=== PATIENT | female | born 1955 | race Caucasian/White ===

== ENCOUNTER → 2021-08-01 08:59 | Outpatient (BNVA) | payer MEDICARE, SELFPAY | PROVIDERS: PCP Nurse Practitioner Family; Visit Provider Internal Medicine Rheumatology | DX: M75.52 Bursitis of left shoulder (principal); M47.816 Spondylosis without myelopathy or radiculopathy, lumbar region; M19.041 Primary osteoarthritis, right hand; M19.042 Primary osteoarthritis, left hand; M54.30 Sciatica, unspecified side; Z79.52 Long term (current) use of systemic steroids; E11.9 Type 2 diabetes mellitus without complications; Z79.84 Long term (current) use of oral hypoglycemic drugs; Z87.891 Personal history of nicotine dependence | CPT/HCPCS: 20610; 99204 ==

== ENCOUNTER → 2023-06-28 10:13 | Outpatient (BNVA) | payer MEDICARE, OTHER, SELFPAY | PROVIDERS: PCP Nurse Practitioner Family; Visit Provider Emergency Medicine | DX: R39.9 Unspecified symptoms and signs involving the genitourinary system (principal); N39.0 Urinary tract infection, site not specified | CPT/HCPCS: 81000; 87077; 87086; 87184 ==

== ENCOUNTER 2024-10-03 20:26 | Inpatient (IN) | payer MEDICARE, SELFPAY ==
[2024-10-03] VITALS (7 sets, daily range): BP systolic 100–124; BP diastolic 71–86; PULSE 71–90; RESP 11–18; TEMP 36.6; O2SAT 91–97; BMI 27.3
--- NOTE | 2024-10-03 20:27 | XRR_ITS ---
PROCEDURE INFORMATION: Exam: XR Chest Exam date and time: 10/03/2024 8:42 PM Age: 68 years old Clinical indication: Chest pressure; Patient HX: PT. Brought by [facility] with complaint of chest pain. PT. Locked herself out of her house and states that she started having chest pain while trying to lift the window. PT. States that she has history of angina. ; Additional info: Cp TECHNIQUE: Imaging protocol: Radiologic exam of the chest. Views: 1 view. COMPARISON: No relevant prior studies available. FINDINGS: Lungs: Unremarkable. No consolidation. Pleural spaces: Unremarkable. No pleural effusion. No pneumothorax. Heart/Mediastinum: Unremarkable. No cardiomegaly. Bones/joints: Unremarkable. XR/XR chest 1V portable [id number] IMPRESSION: No acute findings.
--- NOTE | 2024-10-03 20:30 | ECG_ITS ---
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1955 Requested By: John Sharma Order Number: [id number] Reading MD: JELENA DOSS Measurements Intervals [place] Rate: 71 P: 42 NV: 164 QRS: -1 QRSD: 89 T: 72 QT: 380 QTc: 414 Interpretive Statements SINUS RHYTHM WITH SINUS ARRHYTHMIA LOW QRS VOLTAGE IN PRECORDIAL LEADS [QRS DEFLECTION < 1.0 mV IN CHEST LEADS] POSSIBLE RIGHT VENTRICULAR CONDUCTION DELAY [RSR (QR) IN V1/V2] PROBABLE ANTERIOR MYOCARDIAL INFARCTION , OF INDETERMINATE AGE [35 ms Q WAVE IN V3/V4] No previous ECG available for comparison Electronically Signed On 10-05-2024 23:14:21 CAFETERIA TEAM LEADER by JELENA DOSS [email or web address]
--- NOTE | 2024-10-03 20:36 | W.ED.CHESTPA ---
HPI - Chest Pain General: Chief Complaint: Chest Pain Stated Complaint: CHEST PAIN Time Seen by Provider: 10/03/24 20:30 Source: patient Mode of arrival: ambulatory Limitations: no limitations History of Present Illness: 68-year-old female states she started having chest pain today 7. States been a pressure pain in her chest that radiates to her left jaw states pain is currently a 6 out of 10 denies any shortness of breath she denies any fevers denies any worsening improving factors. Associated symptoms: Deny abdominal pain, dyspnea, fever(s), nausea or vomiting Related Data Home Medications Medication Instructions Recorded Confirmed acetaminophen 500 mg capsule 500 mg PO Q6H PRN 07/27/21 07/25/24 alprazolam 1 mg tablet (Xanax) 1 mg PO TID PRN 07/27/21 07/25/24 cyclobenzaprine 10 mg tablet 10 mg PO TID 07/27/21 07/25/24 dapagliflozin propanediol 10 mg 10 mg PO DAILY 07/27/21 07/25/24 tablet (Farxiga) docusate sodium 100 mg capsule 100 mg PO DAILY 07/27/21 07/25/24 fluticasone propionate 50 1 spray intranasal DAILY 07/27/21 07/25/24 mcg/actuation nasal spray,suspension gabapentin 600 mg tablet 600 mg PO DAILY 07/27/21 07/25/24 isosorbide mononitrate 30 mg 30 mg PO DAILY 07/27/21 07/25/24 tablet,extended release 24 hr lisinopril 30 mg tablet 30 mg PO DAILY 07/27/21 07/25/24 loratadine 10 mg capsule 10 mg PO DAILY 07/27/21 07/25/24 melatonin 1 mg tablet 1 mg PO DAILY 07/27/21 07/25/24 meloxicam 15 mg tablet 15 mg PO DAILY 07/27/21 07/25/24 pantoprazole 20 mg tablet,delayed 20 mg PO DAILY 07/27/21 07/25/24 release (Protonix) cholecalciferol (vitamin D3) 50 50 mcg PO DAILY 08/01/21 07/25/24 mcg (2,000 unit) capsule Previous Rx's Medication Instructions Recorded ciprofloxacin HCl 500 mg tablet 500 mg PO BID 5 days #10 tabs 06/28/23 Allergies Allergy/AdvReac Type Severity Reaction Status Date / Time lactose Allergy Intermediate Unknown Verified 07/25/24 16:09 atorvastatin [From Lipitor] Allergy sick all Verified 07/25/24 16:09 over doxepin [From Silenor] Allergy Unknown Verified 07/25/24 16:09 fenofibrate Allergy sick all Verified 07/25/24 16:09 over caffeine AdvReac very Verified 07/25/24 16:09 sensitive Review of Systems Const: Denies: fever(s), chills, body aches or change in appetite ENMT: Denies: throat pain or dental pain Card: Reports: chest pain Resp: Denies: dyspnea GI: Denies: abdominal pain, nausea, vomiting or diarrhea : Denies: dysuria Musc: Denies: neck pain or back pain Skin/Breast: Denies: rash Neuro: Denies: headache(s) PFSH ED PFSH: Medical History Angina at rest Degenerative joint disease (DJD) of lumbar spine Diabetes Diabetes type 2, controlled Essential hypertension History of hypercholesterolemia Joint pain Osteoarthritis of hands, bilateral Subacromial bursitis of left shoulder joint Surgical History History of appendectomy History of cholecystectomy History of tonsillectomy Family History Other CAD (coronary artery disease) Cancer Diabetes Family history of premature coronary artery disease Hyperlipidemia Hypertension Lung disease Stroke Denies family history of Rheumatoid arthritis Lupus Chronic kidney disease (CKD) Social History Smoking and tobacco/nicotine status: never used tobacco/nicotine Alcohol intake: current Alcohol intake frequency: holidays/special occasions only Physical Exam Const: COMMON NORMALS: patient oriented x3 HENMT: COMMON NORMALS: normocephalic and atraumatic HEAD & SCALP: normocephalic and atraumatic Neck/C-Spine: COMMON NORMALS: full ROM and supple Chest: COMMONS NORMALS: normal inspection of the chest and normal palpation of entire chest wall Resp: COMMON NORMALS: normal respiratory effort, No retractions, No use of accessory muscles and clear to auscultation bilaterally AUSCULTATION: clear to auscultation bilaterally Cardio: COMMON NORMALS: regular rate, regular rhythm and No murmurs present (Cardio) RATE: regular rate RHYTHM: regular rhythm GI: COMMON NORMALS: Normal to inspection, nondistended, normoactive bowel sounds present, Soft to palpation, non-tender and no masses PALPATION: Yes Soft to palpation Extremity: COMMON NORMALS: normal to inspection and full ROM Neuro: COMMON NORMALS: patient oriented x3, moves all extremities and no focal motor deficits Psych: COMMON NORMALS: mental status grossly normal, Normal thought process present and cooperative THOUGHT PROCESS: Normal thought process present Skin: COMMON NORMALS: no rashes or lesions noted and no wounds GENERAL SKIN EXAM: no rashes or lesions noted Course Vital Signs: Vital signs: Vital Signs Temperature 97.8 F 10/03/24 20:30 Pulse Rate 71 10/03/24 20:56 Respiratory Rate 18 10/03/24 20:57 Blood Pressure 124/86 10/03/24 20:56 Pulse Oximetry 95 10/03/24 20:57 Oxygen Delivery Me thod Room Air 10/03/24 20:56 MDM - Chest Pain Medical Decision Making Patient presents here with chest pain her troponin here is elevated pains improved here EKG shows no signs of ST elevation I spoke to cocoa milling machine operator along with hospitalist and will admit at this time. Medical Records I reviewed the patient's medical records. Lab Data I reviewed the patient's lab results. 10/03/24 20:34 10/03/24 20:34 Laboratory Results WBC 8.17 10^3/uL (3.29-11.43) 10/03/24 20:34 RBC 4.72 10^6/uL (3.85-5.65) 10/03/24 20:34 Hgb 15.80 g/dL (11.27-16.99) 10/03/24 20:34 Hct 47.6 % (36-47) H 10/03/24 20:34 MCV 100.8 fl (85-98) H 10/03/24 20:34 MCH 33.5 pg (27-33) H 10/03/24 20:34 MCHC 33.2 g/dL (30-55) 10/03/24 20:34 RDW 12.6 % (12.1-15.1) 10/03/24 20:34 Plt Count 297 10^3/cmm (157-399) 10/03/24 20:34 MPV 9.7 fL (7.4-10.4) 10/03/24 20:34 Neut % (Auto) 49.1 % 10/03/24 20:34 Lymph % (Auto) 39.3 % 10/03/24 20:34 [place] % (Auto) 9.1 % 10/03/24 20:34 Eos % (Auto) 1.8 % 10/03/24 20:34 Baso % (Auto) 0.5 % 10/03/24 20:34 Neut # (Auto) 4.01 10^3/uL (1.8-7.7) 10/03/24 20:34 Lymph # (Auto) 3.2 10^3/uL (0.8-4.8) 10/03/24 20:34 [place] # (Auto) 0.7 10^3/uL (0.2-0.9) 10/03/24 20:34 Eos # (Auto) 0.2 10^3/uL (0.0-0.8) 10/03/24 20:34 Baso # (Auto) 0.0 10^3/uL (0.0-0.1) 10/03/24 20:34 Nucleated RBC % (auto) 0 % 10/03/24 20:34 Nucleated RBCs # 0.0 /100WBC 10/03/24 20:34 Sodium 141 mmol/L (136-145) 10/03/24 20:34 Potassium 3.5 mmol/L (3.5-5.1) 10/03/24 20:34 Chloride 101 mmol/L (98-107) 10/03/24 20:34 Carbon Dioxide 28 mmol/L (22-29) 10/03/24 20:34 Anion Gap 15.5 (5-19) 10/03/24 20:34 BUN 12 mg/dL (8-23) 10/03/24 20:34 Creatinine 0.9 mg/dL (0.5-0.9) 10/03/24 20:34 GFR Calculation 62.3 mL/min (90-130) L 10/03/24 20:34 Glucose 148 mg/dL (65-115) H 10/03/24 20:34 Calculated Osmolality 295 mOsm/kg (285-295) 10/03/24 20:34 Calcium 10.8 mg/dL (8.5-10.5) H 10/03/24 20:34 Total Bilirubin 0.3 mg/dL (0.15-1.2) 10/03/24 20:34 AST 20 U/L (0-32) 10/03/24 20:34 ALT 14 U/L (0-33) 10/03/24 20:34 Alkaline Phosphatase 78 U/L (35-105) 10/03/24 20:34 Troponin T Baseline 169 ng/L (0-10) H* 10/03/24 20:34 Total Protein 7.5 g/dL (6.6-8.7) 10/03/24 20:34 Albumin 4.8 g/dL (3.5-5.2) 10/03/24 20:34 Globulin 2.7 g/dL (1.3-4.6) 10/03/24 20:34 All radiology interpretation(s) finalized by discharge EKG Data EKG 1: I personally reviewed and interpreted this EKG as follows: EKG interpretation date: 10/03/24 EKG interpretation time: 20:30 Interpretation: nsr hr [address] elevation qrs 89 qtc 402 Discharge Plan Discharge Patient Disposition: Admitted As Inpatient Clinical Impression: Non-ST elevation [place] (NSTEMI) Condition: Stable Prescriptions: No Action cholecalciferol (vitamin D3) 50 mcg (2,000 unit) capsule 50 mcg PO DAILY docusate sodium 100 mg capsule 100 mg PO DAILY loratadine 10 mg capsule 10 mg PO DAILY acetaminophen 500 mg capsule 500 mg PO Q6H PRN melatonin 1 mg tablet 1 mg PO DAILY cyclobenzaprine 10 mg tablet 10 mg PO TID fluticasone propionate 50 mcg/actuation spray,suspension 1 spray intranasal DAILY Rx Instructions: administer into each nostril lisinopril 30 mg tablet 30 mg PO DAILY Farxiga 10 mg tablet 10 mg PO DAILY gabapentin 600 mg tablet 600 mg PO DAILY isosorbide mononitrate 30 mg tablet extended release 24 hr 30 mg PO DAILY meloxicam 15 mg tablet 15 mg PO DAILY alprazolam [Xanax] 1 mg tablet 1 mg PO TID PRN pantoprazole [Protonix] 20 mg tablet,delayed release (DR/EC) 20 mg PO DAILY ciprofloxacin HCl 500 mg tablet 500 mg PO BID 5 Days Qty: 10 0RF Referrals: Patric Saravia [Primary Care Provider] - Coding Level of Care Code ED Burnisher And Bumper for [facility] Esteban
[2024-10-03 20:42] LABS: Basophils % 0.5 %; Eosinophils # 0.2 10^3/uL (0.0-0.8); Eosinophils % 1.8 %; Hematocrit 47.6 % (36-47); Lymphocytes # 3.2 10^3/uL (0.8-4.8); Lymphocytes % 39.3 %; Mean Corpuscular HGB Conc 33.2 g/dL (30-55); Mean Corpuscular Hemoglobin 33.5 pg (27-33); Mean Corpuscular Volume 100.8 fl (85-98); Mean Platelet Volume 9.7 fL (7.4-10.4); Monocytes # 0.7 10^3/uL (0.2-0.9); Monocytes % 9.1 %; Neutrophils # 4.01 10^3/uL (1.8-7.7); Neutrophils % 49.1 %; Nucleated Red Blood Cells % 0 %; Platelet Count 297 10^3/cmm (157-399); Red Blood Count 4.72 10^6/uL (3.85-5.65); Red Cell Distribution Width 12.6 % (12.1-15.1); White Blood Count 8.17 10^3/uL (3.29-11.43)
[2024-10-03] MEDS: HYDROmorphone 1 mg/mL INJ 1 mL IVP (20:57)
[2024-10-03 20:58] LABS: Alanine Aminotransferase 14 U/L (0-33); Albumin Level 4.8 g/dL (3.5-5.2); Alkaline Phosphatase 78 U/L (35-105); Aspartate Amino Transferase 20 U/L (0-32); Blood Urea Nitrogen 12 mg/dL (8-23); Calcium 10.8 mg/dL (8.5-10.5); Carbon Dioxide 28 mmol/L (22-29); Chloride 101 mmol/L (98-107); Creatinine Clr Calc Pharmacy 56.0822; Globulin 2.7 g/dL (1.3-4.6); Glomerular Filtration Rate 62.3 mL/min (90-130); Glucose 148 mg/dL (65-115); Osmolality Calculated 295 mOsm/kg (285-295); Sodium 141 mmol/L (136-145); Total Bilirubin 0.3 mg/dL (0.15-1.2); Total Protein 7.5 g/dL (6.6-8.7)
[2024-10-03 20:59] LABS: Anion Gap 15.5 (5-19); Potassium 3.5 mmol/L (3.5-5.1)
[2024-10-03 21:16] LABS: Troponin(5th) Baseline 169 ng/L (0-10)
--- NOTE | 2024-10-03 21:27 | P.HP_ITS ---
Providers/Chief Complaint 2 Primary Care Provider: Patric Saravia Chief Complaint: CHEST PAIN History of Present Illness Caridad Cheema is a 68 year old female with past medical history significant for type 2 diabetes mellitus, hypertension, hyperlipidemia, and coronary artery disease who presents emergency department with left-sided chest pressure. Patient reports onset around 6 PM this evening. She states she got locked out of her house and with a friend was trying to get through some windows to get back in. She ultimately was unable to and called 911. Please officer was able to open a window and enter the home. During this time she developed a left- sided chest pressure. She initially attributed it to the situation. States after getting inside and getting home down the pressure never left. She rates the pressure about a 7 out of 10 at that time. Reported radiation up to the left jaw. Denies other alleviating or aggravating factors. Due to symptoms and lack of easement, EMS was called. In the emergency department, initial troponin was 169 ng/L. Cardiology consulted recommending NSTEMI treatment. Patient does endorse a history of coronary artery disease. She reports 2 prior cardiac catheterizations via [facility]yman approach. States last 1 was probably around 10 years ago. She denies prior bypass or stents. She reports coronary disease but not severe enough to previously require interventions, only medical management at that time. She reports extensive family history of coronary artery disease with CAD in her mother requiring CABG and all of her brothers requiring interventions as well. Review of Systems 2 Narrative: A complete review of systems was obtained and is negative except as stated in HPI. Medications/Allergies Home Medications Medication Instructions Recorded Confirmed Last Taken Type acetaminophen 500 mg capsule 500 mg PO Q6H PRN Fever Or Pain 07/27/21 10/03/24 Unknown History alprazolam 1 mg tablet (Xanax) 0.5 mg PO BEDTIME PRN Anxiety 07/27/21 10/03/24 Unknown History dapagliflozin propanediol 10 mg 10 mg PO DAILY 07/27/21 10/03/24 Unknown History tablet (Farxiga) gabapentin 600 mg tablet 600 mg PO BID 07/27/21 10/03/24 Unknown History isosorbide mononitrate 30 mg 30 mg PO DAILY 07/27/21 10/03/24 Unknown History tablet,extended release 24 hr lisinopril 30 mg tablet 20 mg PO DAILY 07/27/21 10/03/24 Unknown History pantoprazole 20 mg tablet,delayed 20 mg PO DAILY 07/27/21 10/03/24 Unknown History release (Protonix) cholecalciferol (vitamin D3) 50 5,000 unit PO DAILY 08/01/21 10/03/24 Unknown History mcg (2,000 unit) capsule [place] Mushroom 1,000 mg PO DAILY 10/03/24 10/03/24 Unknown History celecoxib 200 mg capsule 200 mg PO DAILY 10/03/24 10/03/24 Unknown History diclofenac sodium 1 % topical gel 2 g topical BID 10/03/24 10/03/24 Unknown History elderberry fruit 200 mg capsule 2,000 mg PO DAILY 10/03/24 10/03/24 Unknown History ezetimibe 10 mg tablet 10 mg PO DAILY 10/03/24 10/03/24 Unknown History sabina (Zingiber officinalis) 500 500 mg PO DAILY 10/03/24 10/03/24 Unknown History mg capsule semaglutide 1 mg/dose (4 mg/3 mL) 1 mg SUBCUT DIRECTED 10/03/24 10/03/24 09/27/24 History subcutaneous pen injector (Ozempic) solifenacin 5 mg tablet 5 mg PO DAILY 10/03/24 10/03/24 Unknown History Allergies Allergy/AdvReac Type Severity Reaction Status Date / Time lactose Allergy Intermediate Unknown Verified 07/25/24 16:09 atorvastatin [From Lipitor] Allergy sick all Verified 07/25/24 16:09 over doxepin [From Silenor] Allergy Unknown Verified 07/25/24 16:09 fenofibrate Allergy sick all Verified 07/25/24 16:09 over caffeine AdvReac very Verified 07/25/24 16:09 sensitive PFSH Acute 2 PFSH: Medical History (Updated 10/03/24 @ 23:13 by Onesimo Balderas MD) Anxiety Degenerative joint disease (DJD) of lumbar spine Osteoarthritis of hands, bilateral Diabetes type 2, controlled Subacromial bursitis of left shoulder joint Joint pain Diabetes Angina at rest History of hypercholesterolemia Essential hypertension Surgical History History of tonsillectomy History of cholecystectomy History of appendectomy Family History Other CAD (coronary artery disease) Cancer Diabetes Family history of premature coronary artery disease Hyperlipidemia Hypertension Lung disease Stroke Denies family history of Rheumatoid arthritis Lupus Chronic kidney disease (CKD) Social History Smoking and tobacco/nicotine status: never used tobacco/nicotine Alcohol intake: current Alcohol intake frequency: holidays/special occasions only Vitals/I&O/Wt Last Vital Signs Temp 97.8 F 10/03/24 20:30 Pulse 71 10/03/24 20:56 Resp 18 10/03/24 20:57 BP 124/86 10/03/24 20:56 Pulse Ox 95 10/03/24 20:57 O2 Del Method Room Air 10/03/24 20:56 10/03/24 10/03/24 10/03/24 06:59 14:59 22:59 Intake Total 0 / 0 Balance 0 / 0 Weight last 48 hrs Weight 69.853 kg Physical Exam 2 Narrative: General: Patient is awake and alert. Pleasant. Conversational. Head: Normocephalic. Atraumatic. EOM intact. Neck: No JVD. Cardiovascular: RRR. No gallops. No murmurs. No peripheral edema. Lungs: Clear to auscultation, no use of accessory muscles, no crackles or wheezes. Skin: No jaundice. No rashes. Abdomen: Normal bowel sounds, abdomen soft and nontender. Genito Urinary: Genital exam not performed since complaints not related. Rectal: Rectal exam not performed since no symptoms indicated blood loss. Extremities: No cyanosis or clubbing. Musculoskeletal: No swollen or erythematous joints. Neurological: Moves all 4 extremities. No myoclonus. Data 10/03/24 20:34 10/03/24 20:34 A&P Assessment and plan (1) Non-ST elevation [place] (NSTEMI): Presentation consistent with NSTEMI Patient reports history nonobstructive coronary artery disease without recent ischemic evaluation She has multiple risk factors for coronary disease Trend troponins Continuous telemetry monitoring Complete echocardiogram Nitroglycerin as needed, hydromorphone for breakthrough pain Start therapeutic Lovenox for anticoagulation Loaded with aspirin, continue 81 mg daily Will load with Plavix followed by 75 mg daily She has history to statin allergy, could consider low intensity statin Continue Zetia Check lipids and A1c for restratification Consider beta-kane, current hemodynamics will not support systolic blood pressure of 100 mmHg Cardiology consultation for recommendations regarding ischemic workup Make n.p.o. after midnight (2) Diabetes type 2, controlled: Check A1c Hold Farxiga and Ozempic as nonformulary Sliding-scale insulin correction, low-dose Avoid hypoglycemia (3) Anxiety: Continue home Xanax as needed (4) Osteoarthritis of hands, bilateral: Hold home NSAID due to association with worsening outcomes and coronary disease Tylenol as needed (5) Hypertension: Continue home lisinopril (6) Hyperlipidemia: Continue home ezetimibe Plan DVT prophylaxis: Lovenox CODE STATUS: Full code Attestations 2 Medical Necessity Statement*: Patient presents with left-sided chest pressure with radiation to jaw, found to have NSTEMI in the setting of known prior coronary disease with expected hospitalization not to cross 2 midnights for ACS protocol and cardiology evaluation. Coding Level of Care Code Acute Code for [facility] Diagnoses Non-ST elevation [place] (NSTEMI) I21.4 Diabetes type 2, controlled E11.9 Anxiety F41.9 Osteoarthritis of hands, bilateral M19.041; M19.042 Hypertension I10 Hyperlipidemia E78.5
[2024-10-03] MEDS: enoxaparin 80 mg/0.8 mL Syringe 70 MG SUBCUT (21:38)
[2024-10-03] MEDS: ondansetron 4 MG Tablet PO (22:25)
--- NOTE | 2024-10-03 22:27 | ECG_ITS ---
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: : 1955 Requested By: John Sharma Order Number: [id number] Reading MD: JELENA DOSS Measurements Intervals [place] Rate: 70 P: 32 TN: 161 QRS: -1 QRSD: 90 T: 57 QT: 365 QTc: 396 Interpretive Statements SINUS RHYTHM POSSIBLE ANTERIOR MYOCARDIAL INFARCTION , PROBABLY OLD [30 ms Q WAVE IN V3/V4, OR R < 0.2 mV IN V4] Compared to ECG 10/03/2024 20:30:52 Sinus arrhythmia no longer present Myocardial infarct finding still present Electronically Signed On 10-05-2024 23:21:23 PROTECTIVE SIGNAL REPAIRER by JELENA DOSS [id number]
[2024-10-03] MEDS: clopidogrel 300 mg Tablet PO (23:40)
[2024-10-04] VITALS (13 sets, daily range): BP systolic 90–107; BP diastolic 63–74; PULSE 60–93; RESP 12–24; TEMP 36.5–37.7; O2SAT 89–97
[2024-10-04] MEDS: HYDROmorphone 1 mg/mL INJ 1 mL 0.5 MG IVP (01:12)
--- NOTE | 2024-10-04 02:27 | ECG_ITS ---
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
[2024-10-04 02:34] LABS: Chol HDL Ratio 3.71 mg/dL (0.0-4.40); Cholesterol 234 mg/dL (0-200); HDL Cholesterol 63 mg/dL (60-100); LDL Cholesterol Calculated 100 mg/dL (50-129); LDL HDL Ratio 1.59 RATIO (0.00-3.22); Triglycerides 357 mg/dL (0-150)
[2024-10-04 02:35] LABS: Estmated Average Glucose 117; Hemoglobin A1C 5.7 % (4.0-6.0)
[2024-10-04 03:01] LABS: Basophils % 0.3 %; Hematocrit 43.5 % (36-47); Lymphocytes # 1.2 10^3/uL (0.8-4.8); Mean Corpuscular HGB Conc 32.2 g/dL (30-55); Mean Corpuscular Hemoglobin 33.4 pg (27-33); Mean Corpuscular Volume 103.8 fl (85-98); Mean Platelet Volume 9.5 fL (7.4-10.4); Monocytes % 7.5 %; Neutrophils # 10.64 10^3/uL (1.8-7.7); Neutrophils % 82.8 %; Nucleated Red Blood Cells % 0 %; Platelet Count 246 10^3/cmm (157-399); Red Blood Count 4.19 10^6/uL (3.85-5.65); Red Cell Distribution Width 12.9 % (12.1-15.1); White Blood Count 12.84 10^3/uL (3.29-11.43)
[2024-10-04 03:21] LABS: Anion Gap 18.1 (5-19); Blood Urea Nitrogen 13 mg/dL (8-23); Calcium 9.8 mg/dL (8.5-10.5); Carbon Dioxide 24 mmol/L (22-29); Chloride 102 mmol/L (98-107); Glomerular Filtration Rate 99.4 mL/min (90-130); Glucose 147 mg/dL (65-115); Magnesium 2.2 mg/dL (1.7-2.3); Osmolality Calculated 293 mOsm/kg (285-295); Phosphorus 3.1 mg/dL (2.5-4.5); Potassium 4.1 mmol/L (3.5-5.1); Sodium 140 mmol/L (136-145)
[2024-10-04 03:30] LABS: Troponin 5 6HR 393.2 ng/L (0-10); Troponin 5 6HR Delta 224.2 ng/L (0-12)
[2024-10-04 06:35] LABS: Glucose Point of Care 111 mg/dL (70-110)
[2024-10-04] MEDS: ezetimibe 10 mg Tablet PO (08:40)
[2024-10-04] MEDS: pantoprazole DR 40 mg Tablet PO (08:40)
[2024-10-04] MEDS: isosorbide mononitrate ER 30 mg Tablet PO (08:40)
[2024-10-04] MEDS: aspirin 81 mg EC Tablet PO (08:40)
[2024-10-04] MEDS: enoxaparin 80 mg/0.8 mL Syringe 70 MG SUBCUT ×2 (08:41→20:19)
[2024-10-04] MEDS: clopidogrel 75 mg Tablet PO (08:41)
[2024-10-04] MEDS: gabapentin 300 mg Capsule 600 MG PO ×2 (08:41→20:18)
[2024-10-04] MEDS: diclofenac 1% Topical Gel 100 gm 1 APPLIC TOPICAL (08:41)
--- NOTE | 2024-10-04 11:21 | PM.CONSULT ---
Providers/Reason For Consult Consulting Physician/Specialty*: Pam Denis MD Reason for Consult*: Non-ST elevation [place] Requesting Physician: Dr. Rodriguez Attending Physician: Yanet Rodriguez MD Primary Care Provider: Patric Saravia History of Present Illness History of Present Illness Caridad Cheema is a 68 year old female with past medical history significant for hypertension diabetes mellitus who is non-smoker denies any prior episodes of chest pain. She was in usual state of health last week he is up for apartment and trying to get into it she called the neighbor and police for the help, finally they got her apartment open but in the meantime patient started having chest pain which stayed there for 15 to 20 minutes however it started coming back in waxing and waning pattern therefore she came to the ER. She was ruled in for non-ST elevation [place] and admitted to start guideline medical therapy for ACS. Troponin peaked more than 250, currently she is chest pain-free we have been asked to assist in her care. Review of Systems Narrative: A complete review of systems was obtained and is negative except as stated in HPI. Const: Denies: fever(s), chills, body aches or change in appetite ENMT: Denies: throat pain or dental pain Card: Reports: chest pain Resp: Denies: dyspnea GI: Denies: abdominal pain, nausea, vomiting or diarrhea : Denies: dysuria Musc: Denies: neck pain or back pain Skin/Breast: Denies: rash Neuro: Denies: headache(s) Medications/Allergies Home Medications Medication Instructions Recorded Confirmed Last Taken Type acetaminophen 500 mg capsule 500 mg PO Q6H PRN Fever Or Pain 07/27/21 10/03/24 Unknown History alprazolam 1 mg tablet (Xanax) 0.5 mg PO BEDTIME PRN Anxiety 07/27/21 10/03/24 Unknown History dapagliflozin propanediol 10 mg 10 mg PO DAILY 07/27/21 10/03/24 Unknown History tablet (Farxiga) gabapentin 600 mg tablet 600 mg PO BID 07/27/21 10/03/24 Unknown History isosorbide mononitrate 30 mg 30 mg PO DAILY 07/27/21 10/03/24 Unknown History tablet,extended release 24 hr lisinopril 30 mg tablet 20 mg PO DAILY 07/27/21 10/03/24 Unknown History pantoprazole 20 mg tablet,delayed 20 mg PO DAILY 07/27/21 10/03/24 Unknown History release (Protonix) cholecalciferol (vitamin D3) 50 5,000 unit PO DAILY 08/01/21 10/03/24 Unknown History mcg (2,000 unit) capsule Brooks Moura Mushroom 1,000 mg PO DAILY 10/03/24 10/03/24 Unknown History celecoxib 200 mg capsule 200 mg PO DAILY 10/03/24 10/03/24 Unknown History diclofenac sodium 1 % topical gel 2 g topical BID 10/03/24 10/03/24 Unknown History elderberry fruit 200 mg capsule 2,000 mg PO DAILY 10/03/24 10/03/24 Unknown History ezetimibe 10 mg tablet 10 mg PO DAILY 10/03/24 10/03/24 Unknown History sabina (Zingiber officinalis) 500 500 mg PO DAILY 10/03/24 10/03/24 Unknown History mg capsule semaglutide 1 mg/dose (4 mg/3 mL) 1 mg SUBCUT DIRECTED 10/03/24 10/03/24 09/27/24 History subcutaneous pen injector (Ozempic) solifenacin 5 mg tablet 5 mg PO DAILY 10/03/24 10/03/24 Unknown History Allergies Allergy/AdvReac Type Severity Reaction Status Date / Time lactose Allergy Intermediate Unknown Verified 07/25/24 16:09 atorvastatin [From Lipitor] Allergy sick all Verified 07/25/24 16:09 over doxepin [From Silenor] Allergy Unknown Verified 07/25/24 16:09 fenofibrate Allergy sick all Verified 07/25/24 16:09 over caffeine AdvReac very Verified 07/25/24 16:09 sensitive Current Medications Generic Name Dose Route Start Last Admin Trade Name Freq PRN Reason Stop Dose Admin Aspirin 81 mg 10/04/24 09:00 10/04/24 08:40 Aspirin 81 Mg Ec Tablet PO 81 mg DAILY SAGRARIO Administration Clopidogrel Bisulfate 75 mg 10/04/24 09:00 10/04/24 08:41 Clopidogrel 75 Mg Tablet PO 75 mg DAILY SAGRARIO Administration Diclofenac Sodium 1 applic 10/04/24 09:00 10/04/24 08:41 Diclofenac 1% Topical Gel 100 Gm TOPICAL 1 applic BID SAGRARIO Administration Ezetimibe 10 mg 10/04/24 09:00 10/04/24 08:40 Ezetimibe 10 Mg Tablet PO 10 mg DAILY SAGRARIO Administration Enoxaparin Sodium 70 mg 10/04/24 09:00 10/04/24 08:41 Enoxaparin 80 Mg/0.8 Ml Syringe SUBCUT 70 mg Q12H SAGRARIO Administration Gabapentin 600 mg 10/04/24 09:00 10/04/24 08:41 Gabapentin 300 Mg Capsule PO 600 mg BID SAGRARIO Administration Hydromorphone HCl 0.5 mg 10/03/24 23:06 10/04/24 01:12 Hydromorphone 1 Mg/Ml Inj 1 Ml IVP 0.5 mg Q4H PRN Administration SEVERE PAIN Insulin Human Lispro 0 unit 10/04/24 08:00 10/04/24 08:06 Insulin Lispro 100 Unit/1 Ml SUBCUT Not Given WM&BEDTIME [facility] Protocol Isosorbide Mononitrate 30 mg 10/04/24 09:00 10/04/24 08:40 Isosorbide Mononitrate Er 30 Mg Tablet PO 30 mg DAILY SAGRARIO Administration Lisinopril 20 mg 10/04/24 09:00 10/04/24 08:40 Lisinopril 20 Mg Tablet PO Not Given DAILY SAGRARIO Ondansetron HCl 4 mg 10/03/24 21:50 10/03/24 22:25 Ondansetron 4 Mg Tablet PO 4 mg Q8H PRN Administration NAUSEA Pantoprazole Sodium 40 mg 10/04/24 09:00 10/04/24 08:[address] 40 Mg Tablet PO 40 mg DAILY SAGRARIO Administration PFSH Acute PFSH: Medical History (Updated 10/03/24 @ 23:13 by Onesimo Balderas MD) Anxiety Degenerative joint disease (DJD) of lumbar spine Osteoarthritis of hands, bilateral Diabetes type 2, controlled Subacromial bursitis of left shoulder joint Joint pain Diabetes Angina at rest History of hypercholesterolemia Essential hypertension Surgical History History of tonsillectomy History of cholecystectomy History of appendectomy Family History Other CAD (coronary artery disease) Cancer Diabetes Family history of premature coronary artery disease Hyperlipidemia Hypertension Lung disease Stroke Denies family history of Rheumatoid arthritis Lupus Chronic kidney disease (CKD) Social History Smoking and tobacco/nicotine status: never used tobacco/nicotine Alcohol intake: current Alcohol intake frequency: holidays/special occasions only Dietary Habits: Current diet type/program: regular Caffeine: Yes Vitals/I&O/Wt Last Vital Signs Temp 97.7 F 10/04/24 04:00 Pulse 60 10/04/24 07:55 Resp 17 10/04/24 07:55 BP 91/63 10/04/24 07:55 Pulse Ox 97 10/04/24 07:55 O2 Del Method Room Air 10/04/24 07:55 10/03/24 10/04/24 10/04/24 22:59 06:59 14:59 Intake Total 120 / 120 10 / 10 Output Total 400 / 400 Balance 120 / 120 -400 / -280 10 / 10 Weight last 48 hrs Weight 155 lb 6.814 oz Weight 156 lb 8.451 oz Weight 154 lb Physical Exam Const: OTHER: GENERAL: Patient is alert, awake and oriented x3. HEART: Regular S1 and S2. No murmur, rub or gallop. LUNGS: Clear to auscultate bilaterally. CENTRAL NERVOUS SYSTEM: Grossly nonfocal. EXTREMITIES: Lower extremities with out edema bilaterally. Data 10/04/24 02:40 10/04/24 02:40 A&P Assessment and plan (1) Non-ST elevation [place] (NSTEMI): (2) Hypertension: Consult Attestations Medical Necessity Statement: 68-year-old female past medical history significant for diabetes mellitus hypertension non-smoker presented with chest pain twelve-lead EKG showed possible old septal myocardial infarction otherwise no significant ST's ST changes she was ruled in for non-ST elevation [place], given history physical examination differential diagnosis could be obstructive coronary artery disease versus stress-induced cardiomyopathy, we will therefore proceed with left heart cath. Continue aspirin and statin beta-kane and anticoagulation. Further plan will be devised as per progress of the patient. Patient has been explained risk-benefit and alternative for the procedure she understand risk of stroke major bleed which is 2% and 6% risk of contrast-induced nephropathy vascular injury leading to urgent emergent surgery, will proceed with it. Coding Level of Care Code Acute Code for [facility] Diagnoses Non-ST elevation [place] (NSTEMI) I21.4 Hypertension I10
[2024-10-04 11:55] LABS: Glucose Point of Care 88 mg/dL (70-110)
--- NOTE | 2024-10-04 13:16 | W.PM.OPSUD ---
Surgery/Procedure H&P Update DATE OF PROCEDURE: October 04, 2024 DATE H&P PERFORMED: 10/04/24 H&P UPDATE INFORMATION: I have reviewed H&P completed within last 30 days, I have examined patient prior to procedure and No changes to prior documentation PREOP DIAGNOSIS: [id number] of PLANNED PROCEDURE: Left heart cath/PCI if indicated PATIENT REASSESSED PRIOR TO SEDATION, WITH NO CHANGE NOTED: Yes PHYSICAL EXAM: alert, oriented x 3, clear to auscultation bilaterally and regular rate & rhythm
--- NOTE | 2024-10-04 13:18 | PC.NURSE ---
Patient left unit to laboratory tester at 1315.
--- NOTE | 2024-10-04 14:01 | P.PN_ITS ---
Subjective 2 Subjective: seen this am plan for cath today chest pain free at this time Vitals/I&O/Wt Last Vital Signs Temp 98.9 F 10/04/24 12:47 Pulse 72 10/04/24 12:47 Resp 16 10/04/24 12:47 BP 93/65 10/04/24 12:47 Pulse Ox 93 10/04/24 12:47 O2 Del Method Room Air 10/04/24 07:55 10/03/24 10/04/24 10/04/24 22:59 06:59 14:59 Intake Total 120 / 120 10 / 10 Output Total 400 / 400 Balance 120 / 120 -400 / -280 10 / Weight last 48 hrs Weight 70.5 kg Weight 71 kg Weight 69.853 kg Physical Exam 2 Narrative: General: Patient is awake and alert. Pleasant. Conversational. Head: Normocephalic. Atraumatic. EOM intact. Cardiovascular: RRR. No gallops. No murmurs. No peripheral edema. Lungs: Clear to auscultation, no use of accessory muscles, no crackles or wheezes. Abdomen: Normal bowel sounds, abdomen soft and nontender. Extremities: No cyanosis or clubbing. Neurological: Moves all 4 extremities. No myoclonus. Data 10/04/24 02:40 10/04/24 02:40 A&P Assessment and plan (1) Non-ST elevation [place] (NSTEMI): Presentation consistent with NSTEMI Patient reports history nonobstructive coronary artery disease without recent ischemic evaluation She has multiple risk factors for coronary disease Trend troponins Continuous telemetry monitoring Complete echocardiogram Nitroglycerin as needed, hydromorphone for breakthrough pain Start therapeutic Lovenox for anticoagulation Loaded with aspirin, continue 81 mg daily Will load with Plavix followed by 75 mg daily She has history to statin allergy, could consider low intensity statin Continue Zetia Check lipids and A1c for restratification Consider beta-kane, current hemodynamics will not support systolic blood pressure of 100 mmHg Cardiology consultation for recommendations regarding ischemic workup Make n.p.o. after midnight (2) Diabetes type 2, controlled: Check A1c Hold Farxiga and Ozempic as nonformulary Sliding-scale insulin correction, low-dose Avoid hypoglycemia (3) Anxiety: Continue home Xanax as needed (4) Osteoarthritis of hands, bilateral: Hold home NSAID due to association with worsening outcomes and coronary disease Tylenol as needed (5) Hypertension: Continue home lisinopril (6) Hyperlipidemia: Continue home ezetimibe Plan DVT prophylaxis: Keyannaangelia CODE STATUS: Full code 10/04/2024 plan for cath today chest pain free at this time however states she may have some discomfort continue aspirin, plavix zetia continue lisinopril continue imdur Attestations 2 Medical Necessity Statement*: Patient presents with left-sided chest pressure with radiation to jaw, found to have NSTEMI in the setting of known prior coronary disease with expected hospitalization not to cross 2 midnights for ACS protocol and cardiology evaluation. Diagnoses Non-ST elevation [place] (NSTEMI) I21.4 Diabetes type 2, controlled E11.9 Anxiety F41.9 Osteoarthritis of hands, bilateral M19.041; M19.042 Hypertension I10 Hyperlipidemia E78.5
--- NOTE | 2024-10-04 15:24 | PM.PROC ---
Procedure Note: Date of procedure: 10/04/24 Pre-procedure diagnosis: nstemi Post-procedure diagnosis: same Procedure: Left heart cath was performed Left main: No significant stenosis LAD: Proximal 70 to 80% stenosis Left circumflex proximal 50% stenosis obtuse marginal has long 80 to 90% stenosis as well. RCA is nondominant small caliber vessel without significant stenosis PCI: Difficulty and guide engagement due to tortuosity of the subclavian vessel, drug-eluting stent to obtuse marginal with 3.0 x 30 mm postdilated noncompliant balloon excellent angiographic result YAHAIRA-3 flow was achieved. Drug-eluting stent to proximal LAD with 3.0 x 30 mm drug-eluting stent postdilated with 3.5 noncompliant balloon excellent angiographic result YAHAIRA-3 flow was achieved. LVEDP was 28 mmHg Patient tolerated procedure well without any complication. Plan Radial band as per protocol Continue aspirin and statin beta-kane Plavix 75 mg once a day Full note to be dictated Coding Level of Care Code Acute Code for [facility]
--- NOTE | 2024-10-04 15:30 | PC.NURSE ---
Patient returned to unit from labeling machine operator with a right radial TR-band.
[2024-10-04] MEDS: FUROsemide 10 mg/mL SDV 4mL 40 MG IVP (16:03)
[2024-10-04 17:03] LABS: Glucose Point of Care 104 mg/dL (70-110)
[2024-10-04 21:05] LABS: Glucose Point of Care 135 mg/dL (70-110)
--- NOTE | 2024-10-04 21:33 | USCV_ITS ---
Caridad Cheema Age: 68 Gender: F : 1955 Exam Date: 10/04/2024 10:11 Ordering Phys: Onesimo Balderas MD Technologist: Patrick Guzmán Exam Location: [facility] [place] Indication: nstemi BP: 91 / 63 HR: 65 Rhythm: Sinus Technical Quality: Adequate MEASUREMENTS (Male / Female) Normal Values 2D ECHO LV Diastolic Diameter PLAX 4.7 cm 4.2 - 5.9 / 3.9 - 5.3 cm IVS Diastolic Thickness 1.2 cm 0.6 - 1.0 / 0.6 - 0.9 cm IVS Systolic Thickness 1.1 cm LVPW Diastolic Thickness 1.4 cm 0.6 - 1.0 / 0.6 - 0.9 cm LVPW Systolic Thickness 1.3 cm LVOT Diameter 2.0 cm LV Ejection Fraction 2D Teich 69.5 % LV Ejection Fraction MOD 4C 35.5 % LV Ejection Fraction MOD 2C 33.7 % LV Ejection Fraction 2C AL 35.4 % LA Diameter 3.3 cm RA Systolic Volume 4C AL 22.5 ml RA Systolic Volume 4C MOD 22.7 ml LA Sys Volume AL 63.3 cm cubed LA Sys Volume Index AL 35.4 cm cubed/m squared Aorta at Sinotubular Diameter 2.3 cm IVC Diameter 1.8 cm M-MODE LA Ao Ratio MM 1.8 AV Cusp Separation MM 1.6 cm DOPPLER AV Peak Velocity 136.7 cm/s LVOT Peak Velocity 107.0 cm/s AV Area Cont Eq vti 3.0 cm squared AV Area Cont Eq pk 2.5 cm squared MV Peak Velocity 86.0 cm/s MV Area PHT 5.2 cm squared TV Peak Velocity 298.7 cm/s TR Peak Velocity 316.0 cm/s TR Peak Gradient 39.9 mmHg TR Mean Velocity 242.0 cm/s TR Mean Gradient 26.0 mmHg TR Velocity Time Integral 80.6 cm PV Peak Velocity 69.0 cm/s RV Ejection Time 0.2 s FINDINGS Left Ventricle Moderately increased left ventricular cavity size. Severely decreased left ventricular systolic function. Left ventricular ejection fraction is estimated at 35%. There appeared to be mid to distal anterior septal and apical severe hypokinesis. There appeared to be anterior septal apical and lateral apical quinteros severe hypokinesis Right Ventricle The right ventricle is normal in size and function. Right Atrium The right atrium is normal in size. Left Atrium Moderately increased left atrial size. Mitral Valve Mildly thickened mitral valve. No mitral valve stenosis. Mild mitral valve regurgitation. Aortic Valve Moderate aortic valve calcification. Mild aortic valve stenosis, mean gradient 3.7 mmHg, SUSANNA 3 cm squared. Trace aortic valve regurgitation. Tricuspid Valve Moderate tricuspid valve regurgitation. Pulmonic Valve Structurally normal pulmonic valve without significant stenosis. There is no pulmonic regurgitation. Pericardium Normal pericardium without effusion. Aorta Normal ascending aorta dimension. IVC The inferior vena cava appears normal. CONCLUSIONS Moderately increased left ventricular cavity size. Severely decreased left ventricular systolic function. Left ventricular ejection fraction is estimated at 35%. There appeared to be mid to distal anterior septal and apical severe hypokinesis. There appeared to be anterior septal apical and lateral apical quinteros severe hypokinesis Moderately increased left atrial size. Moderate tricuspid valve regurgitation. There is no pericardial effusion. Right atrial pressure is around 5 mm of mercury. Pam Denis MD (Electronically Signed) Final Date: 04 October 2024 16:12 S
[2024-10-05] VITALS (11 sets, daily range): BP systolic 87–110; BP diastolic 60–76; PULSE 73–97; RESP 16–20; TEMP 36.4–37.3; O2SAT 94–98
[2024-10-05 05:50] LABS: Basophils % 0.4 %; Eosinophils # 0.1 10^3/uL (0.0-0.8); Eosinophils % 0.9 %; Hematocrit 44.9 % (36-47); Lymphocytes # 2.7 10^3/uL (0.8-4.8); Lymphocytes % 29.7 %; Mean Corpuscular HGB Conc 33.6 g/dL (30-55); Mean Corpuscular Hemoglobin 33.9 pg (27-33); Mean Corpuscular Volume 100.9 fl (85-98); Mean Platelet Volume 9.3 fL (7.4-10.4); Monocytes # 0.9 10^3/uL (0.2-0.9); Monocytes % 9.7 %; Neutrophils # 5.42 10^3/uL (1.8-7.7); Neutrophils % 59.1 %; Nucleated Red Blood Cells % 0 %; Platelet Count 248 10^3/cmm (157-399); Red Blood Count 4.45 10^6/uL (3.85-5.65); Red Cell Distribution Width 12.9 % (12.1-15.1); White Blood Count 9.17 10^3/uL (3.29-11.43)
--- NOTE | 2024-10-05 06:04 | P.PN_ITS ---
Subjective 2 Subjective: s/p YONY x 1 to LAD on 10/04. Blood pressures are trending to be low, 87/64 today, otherwise systolic mostly running in the 90s. Imdur given this morning. Holding lisinopril.patient denies any syncopal symptoms Medications: Reviewed: Yes Vitals/I&O/Wt Last Vital Signs Temp 97.8 F 10/05/24 04:00 Pulse 73 10/05/24 05:04 Resp 20 H 10/05/24 04:00 BP 110/68 10/05/24 04:00 Pulse Ox 97 10/05/24 04:00 O2 Del Method Room Air 10/04/24 16:00 10/04/24 10/04/24 10/05/24 14:59 22:59 06:59 Intake Total 470 / 480 Balance 470 / 480 Weight last 48 hrs Weight 70.5 kg Weight 70.5 kg Weight 71 kg Weight 69.853 kg Physical Exam 2 Narrative: General: No acute distress, AO x3 HEENT: PERRLA, pupils bilaterally equal and reactive, pallors not present Chest: Normal vesicular breath sounds, no added sounds, equal good air entry bilaterally CVS: S1-S2 regular, no murmurs, no tachycardia, no gallops, no rubs Abdomen: Soft, nontender, no organomegaly, bowel sounds present Neuro: No focal deficits, no facial deformity, AO x3, power 5/5 in all limbs Data 10/05/24 05:35 10/05/24 05:35 A&P Assessment and plan (1) Non-ST elevation [place] (NSTEMI): Presentation consistent with NSTEMI Patient reports history nonobstructive coronary artery disease without recent ischemic evaluation She has multiple risk factors for coronary disease Trend troponins Continuous telemetry monitoring Complete echocardiogram Nitroglycerin as needed, hydromorphone for breakthrough pain Start therapeutic Lovenox for anticoagulation Loaded with aspirin, continue 81 mg daily Will load with Plavix followed by 75 mg daily She has history to statin allergy, could consider low intensity statin Continue Zetia Check lipids and A1c for restratification Consider beta-kane, current hemodynamics will not support systolic blood pressure of 100 mmHg Cardiology consultation for recommendations regarding ischemic workup Make n.p.o. after midnight (2) Diabetes type 2, controlled: Check A1c Hold Farxiga and Ozempic as nonformulary Sliding-scale insulin correction, low-dose Avoid hypoglycemia (3) Anxiety: Continue home Xanax as needed (4) Osteoarthritis of hands, bilateral: Hold home NSAID due to association with worsening outcomes and coronary disease Tylenol as needed (5) Hypertension: Continue home lisinopril (6) Hyperlipidemia: Continue home ezetimibe Plan DVT prophylaxis: Lovenox CODE STATUS: Full code 10/04/2024 plan for cath today chest pain free at this time however states she may have some discomfort continue aspirin, plavix zetia continue lisinopril continue imdur 10/05/23: s/p YONY to LAD yesterday. D/c lovenox full dose. Continue ASA and plavix. labs WNL. low BP, trending 80-90 systolic today, discontinue lisinopril. Patient has not received dose this morning. Additionally will discontinue Imdur and monitor closely for her blood pressure trend today. Patient states that she has been taking Imdur for many years and her dose of lisinopril has been gradually brought down over the past many months. Attestations 2 Medical Necessity Statement*: Closely monitor blood pressure with adjustment in medication doses today. Coding Level of Care Code Acute Code for Chg Fwd Moderate MDM includes number and complexity of problems actively addressed during encounter, amount and/or complexity of data reviewed/ordered and described risk of complication, morbidity or mortality of management as documented Diagnoses Non-ST elevation [place] (NSTEMI) I21.4 Diabetes type 2, controlled E11.9 Anxiety F41.9 Osteoarthritis of hands, bilateral M19.041; M19.042 Hypertension I10 Hyperlipidemia E78.5
[2024-10-05 06:06] LABS: Anion Gap 12.9 (5-19); Blood Urea Nitrogen 13 mg/dL (8-23); Calcium 9.4 mg/dL (8.5-10.5); Carbon Dioxide 26 mmol/L (22-29); Chloride 104 mmol/L (98-107); Creatinine Clr Calc Pharmacy 63.3675; Glomerular Filtration Rate 99.4 mL/min (90-130); Glucose 125 mg/dL (65-115); Osmolality Calculated 290 mOsm/kg (285-295); Potassium 3.9 mmol/L (3.5-5.1); Sodium 139 mmol/L (136-145)
[2024-10-05 06:15] LABS: Glucose Point of Care 127 mg/dL (70-110)
[2024-10-05] MEDS: gabapentin 300 mg Capsule 600 MG PO ×2 (08:49→16:46)
[2024-10-05] MEDS: pantoprazole DR 40 mg Tablet PO (08:49)
[2024-10-05] MEDS: clopidogrel 75 mg Tablet PO (08:49)
[2024-10-05] MEDS: aspirin 81 mg EC Tablet PO (08:50)
[2024-10-05] MEDS: isosorbide mononitrate ER 30 mg Tablet PO (08:50)
[2024-10-05] MEDS: diclofenac 1% Topical Gel 100 gm 1 APPLIC TOPICAL ×2 (08:51→16:47)
[2024-10-05] MEDS: ezetimibe 10 mg Tablet PO (08:51)
--- NOTE | 2024-10-05 11:36 | PC.NURSE ---
Patient is complaining of right lateral calf pain. It feels like a small knot in the area. No redness noted but painful to the touch, no swelling noted. Provider is notified.
[2024-10-05 12:08] LABS: Glucose Point of Care 134 mg/dL (70-110)
[2024-10-05 16:30] LABS: Glucose Point of Care 113 mg/dL (70-110)
--- NOTE | 2024-10-05 19:32 | P.PN_ITS ---
Subjective 2 Subjective: Status post PCI to mid LAD and obtuse marginal, overall doing fine from a cardiovascular perspective blood pressure was on the milder lower side she was feeling little dizzy therefore we will be staying overnight Medications: Reviewed: Yes Vitals/I&O/Wt Last Vital Signs Temp 98.4 F 10/05/24 16:00 Pulse 88 10/05/24 16:00 Resp 18 10/05/24 16:00 BP 93/75 10/05/24 16:00 Pulse Ox 96 10/05/24 16:00 O2 Del Method Room Air 10/05/24 16:00 10/05/24 10/05/24 10/05/24 06:59 14:59 22:59 Intake Total 360 / 360 360 / 720 Balance 360 / 360 360 / 720 Weight last 48 hrs Weight 155 lb 6.814 oz Weight 155 lb 6.814 oz Weight 156 lb 8.451 oz Weight 154 lb Physical Exam 2 Const: COMMON NORMALS: alert OTHER: GENERAL: Patient is alert, awake and oriented x3. HEART: Regular S1 and S2. No murmur, rub or gallop. LUNGS: Clear to auscultate bilaterally. CENTRAL NERVOUS SYSTEM: Grossly nonfocal. EXTREMITIES: Lower extremities with out edema bilaterally. Resp: COMMON NORMALS: clear to auscultation bilaterally AUSCULTATION: clear to auscultation bilaterally Neuro: SENSORIUM/ORIENTATION: Yes alert Data 10/05/24 05:35 10/05/24 05:35 A&P Assessment and plan (1) Non-ST elevation [place] (NSTEMI): (2) Hypertension: (3) Ischemic cardiomyopathy: Left ventricular ejection fraction less than 35% (4) LV dysfunction: severely depressed left ventricle ejection fraction less than 35% Plan Status post PCI to mid LAD, obtuse marginal Guideline medical therapy for heart failure will be added as an outpatient send patient not did not tolerate blood pressure lyon Attestations 2 Medical Necessity Statement*: Patient require continuation of hospitalization for above defined care Coding Level of Care Code Acute Code for Chg Fwd Diagnoses Non-ST elevation [place] (NSTEMI) I21.4 Hypertension I10 Ischemic cardiomyopathy I25.5 LV dysfunction I51.9
[2024-10-05 20:53] LABS: Glucose Point of Care 125 mg/dL (70-110)
[2024-10-06] VITALS: BP 94/74; PULSE 84; RESP 18; O2SAT 95
[2024-10-06 04:00] VITALS: BP 104/73; PULSE 81; RESP 17; TEMP 36.6; O2SAT 95
[2024-10-06 05:10] LABS: Alanine Aminotransferase 11 U/L (0-33); Albumin Level 3.7 g/dL (3.5-5.2); Alkaline Phosphatase 65 U/L (35-105); Anion Gap 14.8 (5-19); Aspartate Amino Transferase 22 U/L (0-32); Blood Urea Nitrogen 16 mg/dL (8-23); Calcium 9.5 mg/dL (8.5-10.5); Carbon Dioxide 27 mmol/L (22-29); Chloride 104 mmol/L (98-107); Creatinine Clr Calc Pharmacy 63.3675; Globulin 2.5 g/dL (1.3-4.6); Glomerular Filtration Rate 99.4 mL/min (90-130); Glucose 120 mg/dL (65-115); Osmolality Calculated 296 mOsm/kg (285-295); Potassium 3.8 mmol/L (3.5-5.1); Sodium 142 mmol/L (136-145); Total Bilirubin 0.2 mg/dL (0.15-1.2); Total Protein 6.2 g/dL (6.6-8.7)
[2024-10-06 06:00] VITALS: PULSE 80
[2024-10-06 06:29] LABS: Glucose Point of Care 117 mg/dL (70-110)
[2024-10-06 07:07] VITALS: BP 97/67; PULSE 89; RESP 13; TEMP 36.4; O2SAT 96
--- NOTE | 2024-10-06 08:44 | PC.NURSE ---
Nursing staff entered room and patient was holding her right nostril, patient said she had a bloody nose but it was stopping. Patient was currently holding pressure. She commented that she had been having them lately.
[2024-10-06] MEDS: clopidogrel 75 mg Tablet PO (08:46)
[2024-10-06] MEDS: pantoprazole DR 40 mg Tablet PO (08:46)
[2024-10-06] MEDS: metoprolol succinate ER (24 HR) 25 mg Tablet 12.5 MG PO (08:46)
[2024-10-06] MEDS: ezetimibe 10 mg Tablet PO (08:46)
[2024-10-06] MEDS: lisinopril 2.5 mg Tablet PO (08:46)
[2024-10-06] MEDS: aspirin 81 mg EC Tablet PO (08:46)
[2024-10-06] MEDS: gabapentin 300 mg Capsule 600 MG PO (08:46)
[2024-10-06] MEDS: diclofenac 1% Topical Gel 100 gm 1 APPLIC TOPICAL (08:47)
[2024-10-06 08:48] VITALS: BP 119/80; PULSE 76
--- NOTE | 2024-10-06 10:23 | P.PN_ITS ---
<Statement entered by Pam Denis MD - 10/07/24 01:00> Patient was evaluated and cared for in conjunction with an advanced practice practitioner. I personally examined the patient and reviewed the chart and all pertinent data including imaging, telemetry, and laboratory results. I discussed the patient in detail with the advanced practice practitioner. Please see their note for complete H&P testing result and agreed upon plan of care for the patient. GENERAL: Patient is alert, awake and oriented x3. HEART: Regular S1 and S2. No murmur, rub or gallop. LUNGS: Clear to auscultate bilaterally. CENTRAL NERVOUS SYSTEM: Grossly nonfocal. EXTREMITIES: Lower extremities with out edema bilaterally. Assessment and plan Non-ST elevation myocardial infarction Severely depressed ejection fraction less than 30% Ischemic cardiomyopathy Status post PCI to LAD and obtuse marginal Continue guideline medical therapy for heart failure LifeVest today Possible discharge today Subjective 2 Subjective: She has done well overnight, no chest pain or shortness of breath. Blood pressure overnight soft, slightly improved this morning. Awaiting LifeVest as LVEF 35%. After she is fitted, she may be discharged home. Continue aspirin, Plavix, metoprolol succinate 12.5 mg daily, lisinopril 2.5 mg daily. Right radial access site looks good, no hematoma. Vitals/I&O/Wt Last Vital Signs Temp 97.6 F 10/06/24 07:07 Pulse 76 10/06/24 08:48 Resp 13 10/06/24 07:07 BP 119/80 10/06/24 08:48 Pulse Ox 96 10/06/24 07:07 O2 Del Method Room Air 10/06/24 07:07 10/05/24 10/06/24 10/06/24 22:59 06:59 14:59 Intake Total 480 / 840 360 / 360 Balance 480 / 840 360 / 360 Weight last 48 hrs Weight 155 lb 6.814 oz Weight 155 lb 6.814 oz Physical Exam 2 Const: COMMON NORMALS: no acute distress and patient oriented x3 GENERAL APPEARANCE: cooperative and comfortable ORIENTATION/CONSCIOUSNESS: Yes awake, Yes oriented to person, Yes oriented to place and Yes oriented to time Chest: COMMONS NORMALS: normal inspection of the chest and normal palpation of entire chest wall CHEST: Yes Symmetrical chest wall rise Resp: COMMON NORMALS: normal respiratory effort, No retractions, No use of accessory muscles and clear to auscultation bilaterally EFFORT & INSPECTION: Yes symmetric chest movement AUSCULTATION: clear to auscultation bilaterally Cardio: COMMON NORMALS: regular rate, regular rhythm, S1 normal heart sound present, S2 normal heart sound present, No gallops present (Cardio), No clicks present (Cardio), No murmurs present (Cardio) and No rub (Cardio) RATE: r egular rate RHYTHM: regular rhythm HEART SOUNDS: S1 normal heart sound present and S2 normal heart sound present PERIPHERAL PULSES: radial pulses present Extremity: COMMON NORMALS: no pedal edema Neuro: COMMON NORMALS: patient oriented x3 and moves all extremities S ENSORIUM/ORIENTATION: Yes oriented to person, Yes oriented to place and Yes oriented to time Data 10/05/24 05:35 10/06/24 04:04 A&P Assessment and plan (1) Non-ST elevation TN (NSTEMI): (2) Hypertension: (3) Ischemic cardiomyopathy: (4) LV dysfunction: Plan Status post PCI to mid LAD, obtuse marginal Guideline medical therapy for heart failure will be added as an outpatient send patient not did not tolerate blood pressure lyon Continue aspirin, Plavix, metoprolol succinate, lisinopril. She has history of statin allergy. After placement of LifeVest she can discharge home from cardiovascular perspective. Maintain blood pressure log at home and bring to follow-up in 10 days in cardiology clinic, with cardiology [employer] [facility]. Attestations 2 Medical Necessity Statement*: Per hospitalist Coding Level of Care Code Acute Code for [facility] Diagnoses Non-ST elevation TN (NSTEMI) I21.4 Hypertension I10 Ischemic cardiomyopathy I25.5 LV dysfunction I51.9
--- NOTE | 2024-10-06 10:48 | PC.NURSE ---
This person spoke with [employer] rep Rut Hilario regarding device placement. Necessary paperwork was sent to [facility] office @ 09:43.
[2024-10-06 11:06] VITALS: BP 113/83; PULSE 82; RESP 13; TEMP 36.8; O2SAT 96
[2024-10-06 11:53] LABS: Glucose Point of Care 133 mg/dL (70-110)
--- NOTE | 2024-10-06 11:54 | P.DS_ITS ---
Discharge Providers Date of Admission: 10/05/24 06:04 Date of Discharge: October 06, 2024 Attending Provider at Admission: Onesimo Balderas MD Attending Provider at Discharge: Brittany Muniz MD Primary Care Provider: Patric Saravia Diagnoses at Discharge Discharge Diagnosis (1) Non-ST elevation DE (NSTEMI): Status: Acute (2) Hypertension: Status: Acute (3) Ischemic cardiomyopathy: Status: Acute (4) LV dysfunction: Status: Acute Reason for Visit Reason for Visit: CHEST PAIN Hospital Course Hospital Course Caridad Cheema is a 68 year old female with past medical history significant for hypertension diabetes mellitus started having chest pain and presented to the ER on October 04, 2024 with an NSTEMI. Her troponin peaked at more than 250. She underwent angiogram which showed the following findings: Left main: No significant stenosis LAD: Proximal 70 to 80% stenosis Left circumflex proximal 50% stenosis obtuse marginal has long 80 to 90% stenosis as well. RCA is nondominant small caliber vessel without significant stenosis Drug-eluting stent was placed to the obtuse marginal and proximal LAD. Patient tolerated the procedure without any complications. She is being discharged on aspirin and beta-kane and Plavix. She is intolerant of statins, listed as allergies therefore has not been receiving this. Echocardiogram showed severely decreased LVEF with an ejection fraction of 35%. There was anterior septal and apical severe hypokinesia. Life vest is being arranged at discharge. Patient states if not delivered today, she would still like to go home and wait for it to be delivered at home understanding the risk of potential arrhythmia. Several medications were attempted to be optimized, however it was limited by relative asymptomatic hypotension. Patient systolic blood pressure ranged between 87-108 mmhg. At the time of discharge, her lisinopril has been dose adjusted down to 2.5 mg p.o. daily. Imdur has been placed on hold. Patient is concerned about Imdur being placed on hold as she states she was told over 10 years ago by her architectural wood model maker never to come off of Imdur due to unclear reasons, but perhaps microvascular disease vs angina ?. Now with newly placed stents, we are hopeful that she will mot be experiencing anginal symptoms. Discussed with her to marcio kim a BP chart at home over the next week and bring this to her cardiology appt. If BP permits, imdur may be resumed at a later time. Physical Exam Narrative: General: No acute distress, AO x3 HEENT: PERRLA, pupils bilaterally equal and reactive, pallors not present Chest: Normal vesicular breath sounds, no added sounds, equal good air entry bilaterally CVS: S1-S2 regular, no murmurs, no tachycardia, no gallops, no rubs Abdomen: Soft, nontender, no organomegaly, bowel sounds present Neuro: No focal deficits, no facial deformity, AO x3, power 5/5 in all limbs Discharge Data Studies Completed and Pending Completed Studies During Hospitalization Category Date Time Status XR chest 1V portable [id number] Stat Exams 10/03/24 20:27 Completed CV. 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 Laboratory Results WBC 9.17 10^3/uL (3.29-11.43) 10/05/24 05:35 RBC 4.45 10^6/uL (3.85-5.65) 10/05/24 05:35 Hgb 15.10 g/dL (11.27-16.99) 10/05/24 05:35 Hct 44.9 % (36-47) 10/05/24 05:35 MCV 100.9 fl (85-98) H 10/05/24 05:35 MCH 33.9 pg (27-33) H 10/05/24 05:35 MCHC 33.6 g/dL (30-55) 10/05/24 05:35 RDW 12.9 % (12.1-15.1) 10/05/24 05:35 Plt Count 248 10^3/cmm (157-399) 10/05/24 05:35 MPV 9.3 fL (7.4-10.4) 10/05/24 05:35 Neut % (Auto) 59.1 % 10/05/24 05:35 Lymph % (Auto) 29.7 % 10/05/24 05:35 [place] % (Auto) 9.7 % 10/05/24 05:35 Eos % (Auto) 0.9 % 10/05/24 05:35 Baso % (Auto) 0.4 % 10/05/24 05:35 Neut # (Auto) 5.42 10^3/uL (1.8-7.7) 10/05/24 05:35 Lymph # (Auto) 2.7 10^3/uL (0.8-4.8) 10/05/24 05:35 [place] # (Auto) 0.9 10^3/uL (0.2-0.9) 10/05/24 05:35 Eos # (Auto) 0.1 10^3/uL (0.0-0.8) 10/05/24 05:35 Baso # (Auto) 0.0 10^3/uL (0.0-0.1) 10/05/24 05:35 Nucleated RBC % (auto) 0 % 10/05/24 05:35 Nucleated RBCs # 0.0 /100WBC 10/05/24 05:35 Sodium 142 mmol/L (136-145) 10/06/24 04:04 Potassium 3.8 mmol/L (3.5-5.1) 10/06/24 04:04 Chloride 104 mmol/L (98-107) 10/06/24 04:04 Carbon Dioxide 27 mmol/L (22-29) 10/06/24 04:04 Anion Gap 14.8 (5-19) 10/06/24 04:04 BUN 16 mg/dL (8-23) 10/06/24 04:04 Creatinine 0.6 mg/dL (0.5-0.9) 10/06/24 04:04 GFR Calculation 99.4 mL/min (90-130) 10/06/24 04:04 Glucose 120 mg/dL (65-115) H 10/06/24 04:04 POC Glucose 133 mg/dL (70-110) H 10/06/24 11:04 Estimat Average Glucose 117 10/03/24 20:34 Hemoglobin A1c 5.7 % (4.0-6.0) 10/03/24 20:34 Calculated Osmolality 296 mOsm/kg (285-295) H 10/06/24 04:04 Calcium 9.5 mg/dL (8.5-10.5) 10/06/24 04:04 Phosphorus 3.1 mg/dL (2.5-4.5) 10/04/24 02:40 Magnesium 2.2 mg/dL (1.7-2.3) 10/04/24 02:40 Total Bilirubin 0.2 mg/dL (0.15-1.2) 10/06/24 04:04 AST 22 U/L (0-32) 10/06/24 04:04 ALT 11 U/L (0-33) 10/06/24 04:04 Alkaline Phosphatase 65 U/L (35-105) 10/06/24 04:04 Troponin T Baseline 169 ng/L (0-10) H* 10/03/24 20:34 Troponin T Hi Sens 6Hr 393.2 ng/L (0-10) H 10/04/24 02:40 Troponin T Hi Sens 6Hr Delta 224.2 ng/L (0-12) H* 10/04/24 02:40 Total Protein 6.2 g/dL (6.6-8.7) L 10/06/24 04:04 Albumin 3.7 g/dL (3.5-5.2) 10/06/24 04:04 Globulin 2.5 g/dL (1.3-4.6) 10/06/24 04:04 Triglycerides 357 mg/dL (0-150) H 10/03/24 20:34 Cholesterol 234 mg/dL (0-200) H 10/03/24 20:34 LDL Cholesterol, Calc 100 mg/dL (50-129) 10/03/24 20:34 HDL Cholesterol 63 mg/dL (60-100) 10/03/24 20:34 LDL/HDL Ratio 1.59 RATIO (0.00-3.22) 10/03/24 20:34 Cholesterol/HDL Ratio 3.71 mg/dL (0.0-4.40) 10/03/24 20:34 Vitals Last Vital Signs Temp 98.3 F 10/06/24 11:06 Pulse 82 10/06/24 11:06 Resp 13 10/06/24 11:06 BP 113/83 10/06/24 11:06 Pulse Ox 96 10/06/24 11:06 O2 Del Method Room Air 10/06/24 11:06 Discharge Plan Discharge Patient Disposition: Home Condition: Stable Prescriptions: New clopidogrel 75 mg Tablet 75 mg PO DAILY 30 Days Qty: 30 0RF aspirin 81 mg Tablet,Delayed Release (Dr/Ec) 81 mg PO DAILY 30 Days Qty: 30 0RF metoprolol succinate 25 mg Tablet Extended Release 24 Hr 12.5 mg PO DAILY 30 Days Qty: 30 0RF lisinopril 2.5 mg Tablet 2.5 mg PO DAILY 30 Days Qty: 30 0RF Continued cholecalciferol (vitamin D3) 50 mcg (2,000 unit) capsule 5,000 unit PO DAILY acetaminophen 500 mg capsule 500 mg PO Q6H PRN (Reason: Fever Or Pain) Farxiga 10 mg tablet 10 mg PO DAILY gabapentin 600 mg tablet 600 mg PO BID alprazolam [Xanax] 1 mg tablet 0.5 mg PO BEDTIME PRN (Reason: Anxiety) pantoprazole [Protonix] 20 mg tablet,delayed release (DR/EC) 20 mg PO DAILY ezetimibe 10 mg tablet 10 mg PO DAILY solifenacin 5 mg tablet 5 mg PO DAILY diclofenac sodium 1 % gel 2 g TOPICAL BID Ozempic 1 mg/dose (4 mg/3 mL) pen injector 1 mg SUBCUT DIRECTED sabina (Zingiber officinalis) 500 mg Capsule 500 mg PO DAILY Elderberry 200 mg Capsule 2,000 mg PO DAILY [place] Mushroom 1,000 mg PO DAILY Discontinued lisinopril 30 mg tablet 20 mg PO DAILY isosorbide mononitrate 30 mg tablet extended release 24 hr 30 mg PO DAILY celecoxib 200 mg capsule 200 mg PO DAILY Discharge Orders: Discharge Order (Routine); Ordered 10/06/24 Ordered By: Brittany Muniz Referrals: Kayy Garcia NP [Nurse Practitioner] - 10/13/24 1:30 pm Patric Saravia [Primary Care Provider] - 10/12/24 1:15 pm Discharge Diet: Usual diet Discharge Activity: Resume usual activity Patient Instructions: Metoprolol (By mouth) (Lopressor, Toprol XL), Lisinopril (By mouth), Aspirin (By mouth), Clopidogrel (By mouth) (Plavix), Coronary Angioplasty (DC), Hypertension (DC), Hyperlipidemia (DC), Opioid Safety, Post Angiogram Home Care Instructions Discharge Attestations 2 Time Spent in Discharge Care*: greater than 30 min Quality Metrics Clinical Quality Measures [ Acute Myocardial Infaction { Clinical Trial Participant: No; Contraindication to aspirin: None; Aspirin prescribed; Contraindication to statin: Drug allergy; Contraindication to PCI: None; PCI performed;}] Coding Level of Care Code Acute Code for [facility]wd Diagnoses Non-ST elevation DE (NSTEMI) I21.4 Hypertension I10 Ischemic cardiomyopathy I25.5 LV dysfunction I51.9
== END 2024-10-06 17:08 | disposition home or self-care (01) | DRG 322 ==
LOC: ER 21:18 → CSU 10-04 03:14
PROVIDERS: Internal Medicine; Internal Medicine Cardiovascular Disease; Admitting Provider Internal Medicine; Emergency Provider Emergency Medicine; PCP Family Medicine; Visit Provider Student in an Organized Health Care Education/Training Program
PROC: 027135Z Dilation of Coronary Artery, Two Arteries with Two Drug-eluting Intraluminal Devices, Percutaneous Approach (ICD-10-PCS; principal; 2024-10-04 13:00)
PROC: 027135Z Dilation of Coronary Artery, Two Arteries with Two Drug-eluting Intraluminal Devices, Percutaneous Approach (ICD-10-PCS; 2024-10-04 13:00)
DX: I21.4 Non-ST elevation (NSTEMI) myocardial infarction (principal); I10 Essential (primary) hypertension; I25.5 Ischemic cardiomyopathy; I51.9 Heart disease, unspecified; E11.9 Type 2 diabetes mellitus without complications; E78.5 Hyperlipidemia, unspecified; I25.10 Atherosclerotic heart disease of native coronary artery without angina pectoris; F41.9 Anxiety disorder, unspecified; M19.042 Primary osteoarthritis, left hand; M19.041 Primary osteoarthritis, right hand; Z82.49 Family history of ischemic heart disease and other diseases of the circulatory system; Z79.84 Long term (current) use of oral hypoglycemic drugs; Z79.85 Long-term (current) use of injectable non-insulin antidiabetic drugs
CPT/HCPCS: 36415; 36416; 71045; 80048; 80053; 80061; 82962; 83036; 83735; 84100; 84484; 85025; 93005; 93306; 93458; 96372; 96374; 96376; 99152; 99153; 99285; C1725; C1769; C1874; C1887; C1894; C9600; C9601; G0378; J1171; J1200; J1644; J1650; J1940; J2250; J3010; J3490; J7030; Q0162; Q9967

== ENCOUNTER → 2024-10-13 12:57 | Outpatient (BNVA) | payer MEDICARE, SELFPAY | PROVIDERS: PCP Family Medicine; Visit Provider Nurse Practitioner Family | DX: I25.5 Ischemic cardiomyopathy (principal); E78.5 Hyperlipidemia, unspecified; I11.9 Hypertensive heart disease without heart failure; I25.2 Old myocardial infarction | CPT/HCPCS: 36415; 80048; 85025; 99214 ==

== ENCOUNTER 2024-10-17 06:00 | Outpatient (RCR) | payer MEDICARE, SELFPAY | END 2024-11-13 23:59 | disposition home or self-care (01) | LOC: MPT 06:00 | PROVIDERS: PCP Family Medicine; Visit Provider Nurse Practitioner Family | DX: M62.81 Muscle weakness (generalized) (principal) | CPT/HCPCS: 97162 ==

== ENCOUNTER 2024-10-26 12:01 | Outpatient (CLI) | payer MEDICARE, SELFPAY ==
[2024-10-26 13:03] LABS: Anion Gap 12.9 (5-19); Blood Urea Nitrogen 10 mg/dL (8-23); Carbon Dioxide 28 mmol/L (22-29); Chloride 104 mmol/L (98-107); Glomerular Filtration Rate 71.3 mL/min (90-130); Glucose 91 mg/dL (65-115); Osmolality Calculated 291 mOsm/kg (285-295); Potassium 3.9 mmol/L (3.5-5.1); Sodium 141 mmol/L (136-145)
== END 2024-10-26 12:02 | disposition home or self-care (01) ==
PROVIDERS: PCP Family Medicine; Visit Provider Nurse Practitioner Family
DX: I25.5 Ischemic cardiomyopathy (principal); I51.9 Heart disease, unspecified; I10 Essential (primary) hypertension
CPT/HCPCS: 36415; 80048

== ENCOUNTER 2024-11-14 06:00 | Outpatient (RCR) | payer MEDICARE, SELFPAY | END 2024-12-14 23:59 | disposition home or self-care (01) | LOC: MPT 06:00 | PROVIDERS: PCP Family Medicine; Visit Provider Nurse Practitioner Family | DX: M62.81 Muscle weakness (generalized) (principal); I51.9 Heart disease, unspecified | CPT/HCPCS: 97110; 97112 ==

== ENCOUNTER → 2024-11-30 10:04 | Outpatient (BNVA) | payer MEDICARE, SELFPAY | PROVIDERS: PCP Family Medicine; Visit Provider Nurse Practitioner Family | DX: Z09 Encounter for follow-up examination after completed treatment for conditions other than malignant neoplasm (principal); I51.9 Heart disease, unspecified; I21.4 Non-ST elevation (NSTEMI) myocardial infarction; I10 Essential (primary) hypertension; E78.5 Hyperlipidemia, unspecified; I25.5 Ischemic cardiomyopathy | CPT/HCPCS: 99213 ==

== ENCOUNTER 2024-12-31 14:18 | Outpatient (CLI) | payer MEDICARE, SELFPAY ==
--- NOTE | 2024-12-31 14:15 | USCV_ITS ---
Caridad Cheema Age: 69 Gender: F : 1955 Exam Date: 12/31/2024 14:31 Ordering Phys: Kayy Garcia NP Technologist: HARSH Exam Location: [facility] [place] Indication: Systolic Dysfunction BP: 119 / 72 HR: 72 Rhythm: Sinus Technical Quality: Adequate MEASUREMENTS (Male / Female) Normal Values 2D ECHO LV Diastolic Diameter PLAX 4.4 cm 4.2 - 5.9 / 3.9 - 5.3 cm IVS Diastolic Thickness 1.0 cm 0.6 - 1.0 / 0.6 - 0.9 cm IVS Systolic Thickness 1.1 cm LVPW Diastolic Thickness 1.0 cm 0.6 - 1.0 / 0.6 - 0.9 cm LVPW Systolic Thickness 0.8 cm LVOT Diameter 2.1 cm LV Ejection Fraction 2D Teich 43.4 % LV Ejection Fraction MOD 4C 54.5 % LV Ejection Fraction MOD 2C 52.7 % LV Ejection Fraction 2C AL 53.9 % LA Diameter 3.5 cm RA Systolic Volume 4C AL 15.8 ml RA Systolic Volume 4C MOD 14.7 ml LA Sys Volume AL 40.6 cm cubed LA Sys Volume Index AL 23.1 cm cubed/m squared Aorta at Sinotubular Diameter 2.7 cm IVC Diameter 2.3 cm M-MODE LA Ao Ratio MM 1.6 AV Cusp Separation MM 1.1 cm DOPPLER AV Peak Velocity 97.0 cm/s LVOT Peak Velocity 85.0 cm/s AV Area Cont Eq vti 3.1 cm squared AV Area Cont Eq pk 3.0 cm squared MV Peak Velocity 101.0 cm/s MV Area PHT 2.8 cm squared Mitral E to A Ratio 0.7 TR Peak Velocity 91.0 cm/s TR Peak Gradient 3.3 mmHg TV Peak E Velocity 69.0 cm/s PV Peak Velocity 82.0 cm/s FINDINGS Left Ventricle Normal left ventricular size and systolic function, EF 65%, visual.no regional wall motion abnormalities. Grade I/IV diastolic dysfunction (abnormal relaxation filling pattern), normal to mildly elevated filling pressures. Right Ventricle The right ventricle is normal in size and function. Right Atrium The right atrium is normal in size. Left Atrium The left atrium is normal in size. Mitral Valve No gross abnormalities noted Aortic Valve Thickened aortic valve. Tricuspid Valve No gross abnormalities noted Pulmonic Valve Pulmonic valve not well visualized. Pericardium Normal pericardium without effusion. Aorta Normal ascending aorta dimension. IVC Normal inferior vena cava. CONCLUSIONS Normal left ventricular size and systolic function, EF 65%, visual.no regional wall motion abnormalities. Grade I/IV diastolic dysfunction (abnormal relaxation filling pattern), normal to mildly elevated filling pressures. Thickened aortic valve. Normal cardiac chamber sizes. Thickened aortic valve. There is no pericardial effusion. There are no intracardiac masses. There is no pericardial effusion. Compared to the study from 10/04/2024, there is significant improvement in the LV ejection fraction from 35% to 65%. No significant mitral regurgitation Dr Maria Elena Mejia MD FACC (Electronically Signed) Final Date: 01 January 2025 17:07 S
== END 2024-12-31 14:19 | disposition home or self-care (01) ==
LOC: RAD 14:21
PROVIDERS: PCP Family Medicine; Visit Provider Nurse Practitioner Family
DX: I51.9 Heart disease, unspecified (principal); R93.1 Abnormal findings on diagnostic imaging of heart and coronary circulation; I35.8 Other nonrheumatic aortic valve disorders
CPT/HCPCS: 93306

== ENCOUNTER → 2025-01-05 10:55 | Outpatient (BNVA) | payer MEDICARE, SELFPAY | PROVIDERS: PCP Family Medicine; Visit Provider Nurse Practitioner Family | DX: I11.0 Hypertensive heart disease with heart failure (principal); I50.9 Heart failure, unspecified; E78.5 Hyperlipidemia, unspecified; I25.5 Ischemic cardiomyopathy; Z09 Encounter for follow-up examination after completed treatment for conditions other than malignant neoplasm; Z79.01 Long term (current) use of anticoagulants; Z79.82 Long term (current) use of aspirin; I25.2 Old myocardial infarction; Z95.5 Presence of coronary angioplasty implant and graft | CPT/HCPCS: 99213 ==

== ENCOUNTER 2025-02-23 08:23 | Outpatient (CLI) | payer MEDICARE, SELFPAY ==
--- NOTE | 2025-02-23 08:33 | MR_ITS ---
WS: [id number] MRI LEFT SHOULDER NONCONTRAST TECHNIQUE: Sagittal T2, coronal T1, T2 and proton density imaging. Axial gradient PDE imaging. CLINICAL INFORMATION: CHRONIC PAIN COMPARISON: None. FINDINGS: Advanced arthritis AC joint with subacromial spurring. Mild downsloping acromion with impingement distal supraspinatus. Subacromial subdeltoid fluid. Cystic degenerative changes in the greater tuberosity. Advanced degenerative narrowing of the glenohumeral articulation with subchondral cystic change. Chronic thinning of the supraspinatus. Partial undersurface tear distal supraspinatus with tendinopathy. Normal infraspinatus. Normal teres minor. Subscapularis tendon appears intact. Osteophyte formation along the bicipital groove. Biceps tendon appears intact within the bicipital groove with subluxation along the proximal groove. Tendinopathy intra-articular biceps tendon. Calcified loose body along the biceps tendon sheath measuring 1.3 cm. MR/MR shoulder LT wo con* [id number] IMPRESSION: 1. Advanced arthritis AC joint with mild narrowing of the subacromial space an d impingement of the supraspinatus. 2. Partial undersurface tear distal supraspinatus with tendinopathy. 3. Medial subluxation of the biceps tendon along the bicipital groove. 4. Calcified loose body along the biceps tendon sheath. 5. Tendinopathy intra-articular biceps tendon. 6. Advanced degenerative changes of the glenohumeral articulation with hypertr ophic and subchondral cystic changes
== END 2025-02-23 08:24 | disposition home or self-care (01) ==
PROVIDERS: PCP Family Medicine; Visit Provider Family Medicine
DX: M19.012 Primary osteoarthritis, left shoulder (principal); M75.42 Impingement syndrome of left shoulder; M75.102 Unspecified rotator cuff tear or rupture of left shoulder, not specified as traumatic; S43.082A Other subluxation of left shoulder joint, initial encounter; X58.XXXA Exposure to other specified factors, initial encounter; R93.7 Abnormal findings on diagnostic imaging of other parts of musculoskeletal system; M67.814 Other specified disorders of tendon, left shoulder; M25.712 Osteophyte, left shoulder
CPT/HCPCS: 73221

== ENCOUNTER → 2025-04-27 14:41 | Outpatient (BNVA) | payer MEDICARE, SELFPAY | PROVIDERS: PCP Family Medicine; Visit Provider Internal Medicine Cardiovascular Disease | DX: I25.10 Atherosclerotic heart disease of native coronary artery without angina pectoris (principal); I11.0 Hypertensive heart disease with heart failure; I50.9 Heart failure, unspecified; M19.90 Unspecified osteoarthritis, unspecified site; Z95.5 Presence of coronary angioplasty implant and graft | CPT/HCPCS: 99214 ==